=== PATIENT | female | born 1980 | race Asian ===

== ENCOUNTER 2021-02-04 08:01 | Emergency (ER) | payer MEDICAID, OTHER, SELFPAY ==
[~2021-02-04] VITALS: Ht 160 cm; Wt 54.6 kg
--- NOTE | 2021-02-04 08:20 | NUR ---
PA BEDSIDE W/ PT
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
[2021-02-04] MEDS ORDERED: BICILLIN-LA 2,400,000 UNITS/4 ML IM ONE (08:30)
--- NOTE | 2021-02-04 08:40 | NUR ---
MEDICATION REQUEST SENT TO PHARMACY
[2021-02-04 09:10] LABS: HCG UR SG 1.021 (1.003-1.030); MICROSCOPIC NOT IND
--- NOTE | 2021-02-04 09:19 | NUR ---
UPDATE RECEIVED FROM BREAK RN, UA SENT AND PT MEDICATED. NO FURTHER TASK AT THIS TIME. NADN, CALL LIGHT W/IN REACH.
[2021-02-04 10:11] VITALS: BP 131/83
--- NOTE | 2021-02-04 10:12 | NUR ---
Patient given discharge instructions and they have confirmed that they understand the instructions. Patient ambulatory with steady gait.
== END 2021-02-04 10:25 | disposition home or self-care (01) ==
LOC: ED 09:07
DX: A64 Unspecified sexually transmitted disease (principal); M79.18 Myalgia, other site; M54.5 Low back pain
CPT/HCPCS: 36415; 81003; 81025; 86592; 96372; 99283; J0561